=== PATIENT | male | born 1945 | race Caucasian/White ===

== ENCOUNTER → 2023-07-30 09:50 | Outpatient (REF) | payer MEDICARE, SELFPAY | LOC: RAD 09:50 | PROVIDERS: ATTENDING PHYSICIAN Nurse Practitioner Adult Health | DX: I35.0 Nonrheumatic aortic (valve) stenosis (principal) | CPT/HCPCS: 74174; 75572; Q9967 ==

== ENCOUNTER → 2023-09-18 12:51 | Outpatient (REF) | payer MEDICARE, SELFPAY | LOC: RAD 12:51 | PROVIDERS: ATTENDING PHYSICIAN Internal Medicine Critical Care Medicine; FAMILY PHYSICIAN Internal Medicine | DX: R91.1 Solitary pulmonary nodule (principal) | CPT/HCPCS: 71250 ==

== ENCOUNTER 2023-09-24 06:13 | Day surgery (SDC) | payer MEDICARE, SELFPAY ==
[2023-09-11 08:25] VITALS: BMI 32.0
[2023-09-11 09:18] LABS: Hematocrit 47.2 % (39.0-52.0); Hemoglobin 15.5 g/dL (13.0-18.0); Mean Corp Hgb Conc. 32.8 g/dL (33.0-37.0); Mean Corpuscular Hgb 29.5 pg (27.0-31.0); Mean Corpuscular Volume 89.9 fL (80.0-94.0); Mean Platelet Volume 10.1 fL (7.4-10.4); Platelet Count 143 10^3/uL (130-400); Red Blood Cell Count 5.25 10^6/uL (4.70-6.10); Red Cell Dist. Width 14.5 % (11.5-14.5); White Blood Cell Count 7.6 10^3/uL (4.8-10.8)
[2023-09-11 09:31] LABS: INR 1.11; PT 14.1 Sec (11.4-14.6)
[2023-09-11 09:32] LABS: APTT 35.6 Sec (23.4-35.0)
[2023-09-11 13:45] LABS: Blood Urea Nitrogen 38 mg/dl (9-20); Calcium 9.6 mg/dl (8.4-10.2); Carbon Dioxide 21 mmol/L (22-30); Chloride 109 mmol/L (98-107); Estimated Creatinine Clearance 48 ml/min; Glucose 98 mg/dl (70-99); Potassium 4.3 mmol/L (3.5-5.1); Sodium 142 mmol/L (135-145); eGFR 55.88
[2023-09-24] VITALS (8 sets, daily range): BP systolic 114–147; BP diastolic 46–72; BMI 32.2
== END 2023-09-24 10:40 | disposition home or self-care (01) ==
LOC: SDS 06:13
PROVIDERS: ATTENDING PHYSICIAN Internal Medicine Critical Care Medicine; FAMILY PHYSICIAN Internal Medicine; OTHER PHYSICIAN Internal Medicine Cardiovascular Disease
DX: C34.32 Malignant neoplasm of lower lobe, left bronchus or lung (principal); R91.1 Solitary pulmonary nodule; R91.8 Other nonspecific abnormal finding of lung field
CPT/HCPCS: 31629; 31628; 31645; 31624; 31623; 31627; 31654; 88173; 88305; 36415; 71045; 76000; 80048; 81459; 85027; 85610; 85730; 88112; 88333; 88341; 88342; C1887

== ENCOUNTER → 2024-01-18 09:37 | Outpatient (REF) | payer MEDICARE, OTHER, SELFPAY | LOC: RAD 09:37 | PROVIDERS: ATTENDING PHYSICIAN Radiology Radiation Oncology; FAMILY PHYSICIAN Internal Medicine | DX: C34.32 Malignant neoplasm of lower lobe, left bronchus or lung (principal) | CPT/HCPCS: 71250 ==

== ENCOUNTER → 2024-04-08 10:42 | Outpatient (REF) | payer MEDICARE, OTHER, SELFPAY | LOC: RAD 10:42 | PROVIDERS: ATTENDING PHYSICIAN Surgery Vascular Surgery; FAMILY PHYSICIAN Internal Medicine | DX: I73.9 Peripheral vascular disease, unspecified (principal) | CPT/HCPCS: 75635; Q9967 ==

== ENCOUNTER → 2024-06-13 11:30 | Outpatient (REF) | payer MEDICARE, OTHER, SELFPAY | LOC: HWRAD 11:30 | PROVIDERS: ATTENDING PHYSICIAN Radiology Radiation Oncology; FAMILY PHYSICIAN Internal Medicine | DX: C34.32 Malignant neoplasm of lower lobe, left bronchus or lung (principal) | CPT/HCPCS: 71250 ==

== ENCOUNTER → 2024-07-30 11:12 | Outpatient (REF) | payer MEDICARE, OTHER, SELFPAY | LOC: RCS 11:12 | PROVIDERS: ATTENDING PHYSICIAN Internal Medicine Cardiovascular Disease; FAMILY PHYSICIAN Internal Medicine | DX: I35.0 Nonrheumatic aortic (valve) stenosis (principal) | CPT/HCPCS: 93306 ==

== ENCOUNTER → 2024-08-26 11:14 | Outpatient (REF) | payer MEDICARE, SELFPAY | LOC: RAD 11:14 | PROVIDERS: ATTENDING PHYSICIAN Internal Medicine Hematology & Oncology; FAMILY PHYSICIAN Internal Medicine; OTHER PHYSICIAN Radiology Radiation Oncology | DX: C34.32 Malignant neoplasm of lower lobe, left bronchus or lung (principal) | CPT/HCPCS: 71260; 74177; Q9967 ==

== ENCOUNTER → 2024-09-14 10:37 | Outpatient (REF) | payer MEDICARE, SELFPAY | LOC: PAVMRI 10:37 | PROVIDERS: ATTENDING PHYSICIAN Specialist; REFERRING PHYSICIAN Internal Medicine | DX: M48.062 Spinal stenosis, lumbar region with neurogenic claudication (principal) | CPT/HCPCS: 72148 ==

== ENCOUNTER → 2024-09-15 11:43 | Outpatient (REF) | payer MEDICARE, SELFPAY | LOC: RAD 11:43 | PROVIDERS: ATTENDING PHYSICIAN Specialist; FAMILY PHYSICIAN Internal Medicine | DX: M48.062 Spinal stenosis, lumbar region with neurogenic claudication (principal) | CPT/HCPCS: 72110 ==

== ENCOUNTER → 2025-04-01 14:28 | Outpatient (REF) | payer MEDICARE, SELFPAY | LOC: HWRAD 14:28 | PROVIDERS: ATTENDING PHYSICIAN Radiology Radiation Oncology; FAMILY PHYSICIAN Internal Medicine | DX: C34.32 Malignant neoplasm of lower lobe, left bronchus or lung (principal) | CPT/HCPCS: 71250 ==

== ENCOUNTER → 2025-06-01 14:00 | Outpatient (REF) | payer MEDICARE, SELFPAY | LOC: RAD 14:00 | PROVIDERS: ATTENDING PHYSICIAN Surgery Vascular Surgery; FAMILY PHYSICIAN Internal Medicine | DX: I73.9 Peripheral vascular disease, unspecified (principal) | CPT/HCPCS: 93922; 93925 ==